=== PATIENT | male | born 1930 | race Caucasian/White ===

== ENCOUNTER 2019-11-25 19:18 | Inpatient (IN) | payer MEDICARE ==
[~2019-11-25] VITALS: Ht 182.9 cm; Wt 81.6 kg
[2019-11-25 20:39] VITALS: BP 148/73
[2019-11-25] MEDS ORDERED: AMIO200T4 PO (22:19)
[2019-11-25] MEDS ORDERED: BENZ200C53 PO (22:20)
[2019-11-25] MEDS ORDERED: CARV12.52 PO (22:21)
[2019-11-25] MEDS ORDERED: FURO40TA5 PO (22:22)
[2019-11-25] MEDS ORDERED: MAGN400T8 PO (22:26)
[2019-11-25] MEDS ORDERED: POTA-10 PO (22:27)
[2019-11-25] MEDS ORDERED: RIVA10TA PO (22:28)
[2019-11-25] MEDS ORDERED: TAMS-12 PO (22:29)
[2019-11-25] MEDS ORDERED: CEFD300C3 PO (22:30)
[2019-11-25] MEDS ORDERED: DOCU100C36 PO (22:31)
[2019-11-25] MEDS ORDERED: DIPH-530 PO (22:36)
[2019-11-25] MEDS ORDERED: HYDR-4384 PO (22:37)
[2019-11-25] MEDS ORDERED: METO-295 PO (22:39)
[2019-11-25] MEDS ORDERED: BLOOD SUGAR DIAGNOSTIC 1 EACH STRIP IN ONE (23:00)
[2019-11-25] MEDS ORDERED: MAG HYDROX/AL HYDROX/SIMETH 30 ML UDC PO PRN (23:00)
[2019-11-25] MEDS ORDERED: ACETAMINOPHEN 325 MG TABLET PO PRN (23:00)
[2019-11-25] MEDS ORDERED: LORAZEPAM 0.5 MG TABLET PO PRN (23:00)
[2019-11-25] MEDS ORDERED: MAGNESIUM HYDROXIDE 30 ML UDC PO PRN (23:00)
[2019-11-25] MEDS ORDERED: TEMAZEPAM 7.5 MG CAPSULE PO PRN (23:00)
[2019-11-26] MEDS ORDERED: METOCLOPRAMIDE HCL 10 MG TABLET PO PRN
[2019-11-26] MEDS ORDERED: HYDROCODONE/APAP 5/325MG 1 EACH TABLET PO PRN
[2019-11-26 01:52] VITALS: BP 148/73
--- NOTE | 2019-11-26 02:05 | NUR ---
GPS INSTALLERS MECHANICAL NOTES: RECEIVED PT FROM [facility]. PT IS ON HOLD 5150 FOR DTS PLACED ON 11/25/2019 @ 1442. PER HOLD, PT WAS ADMITTED TO [facility] FOR INTENTIONAL OVERDOSE. PT STATED TO [facility] STYLIST ASSISTANT THAT "I'M SICK OF EVERYTHING" HE FURTHER EXPLAINED THAT HE FEELS HIS LIFE WAS "BASICALLY OVER" BECAUSE HE IS 89 Y/O AND FELT HIS FAMILY WAS IGNORING HIM. HE THEN STATED HE HAD OVERDOSED ON A BETA [place] AT 2:00 AM WITH THE INTENTION TO . UPON FACE TO FACE ASSESSMENT PATIENT IS ALERT AND ORIENTED 2-3X, CALM AND COOPERATIVE, APPEARS DEPRESSED, CLEAR SPEECH, HARD OF HEARING, HAS PACE MAKER ON LEFT UPPER CHEST. DISHEVELED, AND STATED HE WANTS TO GO HOME TO HIS . PT MALCOLM [phone] WAS CONTACTED AND INFORMED OF PT ADMISSION, AND SHE SPOKE WITH PT. NO SIGNS OF ACUTE DISTRESS, BREATHING UNLABORED WITH EQUAL RISE AND FALL OF THE CHEST, ON ROOM AIR WITH SPO2 OF 97%. PT DENIES SI AND HI AT THIS TIME. REFUSED TO SIGN ADMISSION PAPERWORK. MRSA BOTH NARES DONE, BLOOD SUGAR 93%. PT ADVISED OF HOLD. PT IS UNDER THE PSYCHIATRIC CARE OF DR. [facility] PT BELONGINGS WERE INVENTORIED AND CHECKED FOR CONTRABAND, AND CONTRABAND TAKEN AND PLACED IN LOCKED LOCKER. PT CHARTING AND SKIN ASSESSMENT COMPLETED, PICTURES TAKEN AND PLACED IN CHART. PT HAS A LACERATION ON HIS LEFT ELBOW, AND SCABS AND BRUISES ON BILATERAL UPPER AND LOWER EXTREMITIES. WOUND CONSULT ORDERED. PT ORIENTED TO ROOM, FLOOR AND STAFF. PT EDUCATED ON THE USE OF CALL LIGHT. BED SIDE RAILS UP X2 FOR SAFETY, BED IN LOW LOCKED POSITION. PT ASSISTED WITH TURNING AND REPOSITIONING Q 2 HR AND PRN FOR CIRCULATION AND COMFORT. OFFERED SNACK AND FLUID TOLERATED. PT CURRENTLY SLEEPING IN BED. WILL CONTINUE TO MONITOR FOR SAFETY, MOOD AND BEHAVIOR AND ENDORSE TO AM NURSE.
[2019-11-26] MEDS: DOCUSATE SODIUM 100 MG CAPSULE PO SCH ×2 (06:00→16:54)
[2019-11-26] MEDS: CARVEDILOL 12.5 MG TABLET PO SCH ×2 (06:00→16:55)
[2019-11-26] MEDS: RIVAROXABAN 10 MG TABLET PO SCH (06:00)
[2019-11-26] MEDS: AMIODARONE HCL 200 MG TABLET PO SCH (06:00)
[2019-11-26] MEDS: MAGNESIUM OXIDE 400 MG TABLET PO SCH (06:00)
--- NOTE | 2019-11-26 06:47 | NUR ---
GPS RN NOTES: PT WOKE UP AT ABOUT 0605 CONFUSED, AND DISORGANIZED, GOT OUT OF BED STATING "I WANT TO , I WANT TO PEE". PT ASSISTED TO THE BATHROOM TO VOID AND REDIRECTED TO PRESENT SITUATION. REFUSED ALL 0600 AM MEDICATIONS AND WENT BACK TO SLEEP. V/S TAKEN BP156/76, P71, O2 SAT 97%. WILL CONTINUE TO MONITOR AND ENDORSE TO AM NURSE. Addendum: 11/26/19 at 0658 by MEENU DAVENPORT RN PT HAS AN ORDER FOR BLOOD THINNER XARELTO 10MG 1 TAB PO
[2019-11-26] MEDS ORDERED: DIPHENHYDRAMINE HCL 12.5 MG/5 ML UDC PO PRN (07:00)
[2019-11-26] MEDS ORDERED: BENZONATATE 100 MG CAPSULE PO PRN (07:00)
[2019-11-26] MEDS ORDERED: CEFDINIR PO SCH (09:00)
--- NOTE | 2019-11-26 11:24 | NUR ---
WOUND CARE CONSULT: PT VERY AGITATED AND REFUSED SKIN ASSESSMENT. REVIEWED PHOTOS WHICH SHOW SCARRING WITH HEALING SKIN TEAR/ABRASION TO LEFT ELBOW/ARM AREA, PRESENT ON ADMISSION. RECOMMENDATIONS MADE FOR WOUND CARE AND SKIN PROTECTION. DISCUSSED WITH NURSING STAFF. CURRENT EDIN SCORE IS 13. WILL SEE PRN. BANDA IN AGREEMENT WITH PLAN OF CARE.
[2019-11-26] MEDS ORDERED: Z GUARD REMEDY 2 OZ OINT TP PRN (11:30)
--- NOTE | 2019-11-26 14:32 | NUR ---
Family Contact: SHAWANDA called the pts , Le ([phone]), and discussed the pts discharge and treatment plan. 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 She stated that once he is discharged she will take him home.
--- NOTE | 2019-11-26 14:34 | NUR ---
Substance Abuse Intervention: SW attempted to conduct a substance abuse intervention with the pt but the pt refused and stated, "I do not have a substance abuse problem."
--- NOTE | 2019-11-26 14:52 | NUR ---
Individual Counseling: This SW met with the pt. at beside to facilitate 1on1 counseling. Patient presented hard of hearing, irritable and guarded. Patient discussed he would like to speak to his psychiatrist and is confused about his stay here. SW used empathetic listening, validation and addressed the patient's questions and concerns. SW inquired about the patient's mood. Patient stated he felt irritated and thinks he will feel better once he can speak to the doctor. Pt. will be invited to attend future therapeutic milieu.
[2019-11-26 15:48] VITALS: BP 131/73
--- NOTE | 2019-11-26 16:15 | NUR ---
Initial Discharge Plan: Pt currently resides at his home located at [address] [place] [address]; ([phone]). Per pt, he would like to return to his home. SHAWANDA will work with the pt and the MD regarding appropriate discharge planning. SW will form a safe and proper discharge plan.
[2019-11-26] MEDS: TAMSULOSIN 0.4 MG CAP.SR.24H PO SCH (17:17)
--- NOTE | 2019-11-26 17:58 | NUR ---
Patient refused take medications at 1700 and 1800, pt stated he don't trust staff and who put poisons in medicine, so he doesn't want to take. Also patient refused wound treatment on left upper arm skin tear. Will continue to monitor for safety and behavior.
--- NOTE | 2019-11-26 19:16 | NUR ---
GPS/RN OPENING NOTES RECEIVED PATIENT IN BED, ABLE TO VERBALIZE NEEDS, RESPIRATIONS EVEN AND UNLABORED, BELONGINGS WITHIN REACH, REQUIRE ASSISTANCE FOR SAFETY, INSTRUCT TO CALL AND USES URINAL, BED SIDE COMMODE STAND BY, ISO COORDINATOR TO ASSIST AND BEING MONITORED FOR ANY CHANGES. RECEIVED ENDORSEMENT FROM AM RN FOR CHRISTIANO.
[2019-11-26 20:00] VITALS: BP 145/69
[2019-11-26 20:10] VITALS: BP 145/69
--- NOTE | 2019-11-26 21:15 | NUR ---
GPS RN NOTE, PATIENT REFUSED TO TAKE COREG 12.5 MG PO AT 1700 TODAY, BUT IS REQUESTING COREG AT THIS TIME. PAGED [facility] AND INFORMED JAIDEN GARIBAY DNP OF MY FINDINGS. JAIDEN GARIBAY DNP ORDERED TO GIVE COREG 12.5 MG PO ONE TIME. ALL ORDERS NOTED AND CARRIED OUT. WILL CONTINUE TO MONITOR THIS PATIENT WITH THE HELP OF STAFF.
[2019-11-26] MEDS ORDERED: CARVEDILOL 6.25 MG TABLET PO ONE (21:30)
--- NOTE | 2019-11-26 21:30 | NUR ---
GPS/RN NOTES PATIENT REQUESTED PRN BENADRYL
--- NOTE | 2019-11-26 21:50 | NUR ---
GPS/RN NOTES ONE TIME ORDER FOR BP MEDICATION COREG 12.5 ORDER RECEIVED TO GIVE FOR PATIENT REQUEST AND WITH BP PARAMETER.
[2019-11-26] MEDS ORDERED: diphenhydrAMINE HCL ELIX 25 MG/10 ML UDC ONE (23:34)
[2019-11-27] MEDS: diphenhydrAMINE HCL ELIX 25 MG/10 ML UDC PO PRN ×2 (00:12→21:35)
[2019-11-27 05:06] LABS: APPEARANCE,URINE CLEAR (CLEAR); BILIRUBIN,URINE NEGATIVE (NEGATIVE); BLOOD, URINE NEGATIVE Ery/uL (NEGATIVE); COLOR,URINE YELLOW (YELLOW); KETONES,URINE NEGATIVE (NEGATIVE); LEUKOCYTE ESTERASE ,URINE NEGATIVE (NEGATIVE); NITRITE, URINE NEGATIVE (NEGATIVE); PH,URINE 7.5 (5.0-8.0); PROTEIN,URINE NEGATIVE (NEGATIVE); UGLUCOSE NEGATIVE (NEGATIVE); UROBILINOGEN,URINE 0.2 EU/dL (0.2)
--- NOTE | 2019-11-27 05:49 | NUR ---
GPS/RN NOTES PATIENT RESTING IN BED, PREFERS TO TAKE 0600 AM MEDS A LITTLE LATER HE WANTS TO GET SOME MORE SLEEP. TO ENDORSE TO AM RN FOR CHRISTIANO.
[2019-11-27] MEDS: DOCUSATE SODIUM 100 MG CAPSULE PO SCH ×3 (06:00→17:17)
[2019-11-27] MEDS: AMIODARONE HCL 200 MG TABLET PO SCH (06:40)
[2019-11-27] MEDS: RIVAROXABAN 10 MG TABLET PO SCH (06:40)
[2019-11-27] MEDS: MAGNESIUM OXIDE 400 MG TABLET PO SCH (06:41)
[2019-11-27] MEDS: CARVEDILOL 12.5 MG TABLET PO SCH ×2 (06:41→17:18)
[2019-11-27 07:14] LABS: BASOPHILS # (AUTO) 0.1 /CMM (0.0-0.2); BASOPHILS % (AUTO) 0.5 % (0.0-2.0); EOSINOPHILS % (AUTO) 1.3 % (0.0-6.0); HEMATOCRIT 31 % (39-51); HEMOGLOBIN 10.4 g/dL (13.5-17.5); LYMPHOCYTES # (AUTO) 0.9 /CMM (0.8-4.8); LYMPHOCYTES % (AUTO) 7.7 % (20.0-44.0); MEAN CORPUSCULAR HGB CONC 34 g/dl (31.0-36.0); MEAN CORPUSCULAR VOLUME 87 fL (80-96); MONOCYTES # (AUTO) 1.2 /CMM (0.1-1.30); NEUTROPHILS # (AUTO) 9.3 /CMM (1.8-8.9); NEUTROPHILS % (AUTO) 80.5 % (43.0-81.0); PLATELET COUNT (AUTO) 460 /CMM (150-450); RED BLOOD CELL COUNT(AUTO) 3.52 MIL/uL (4.5-6.0); WHITE BLOOD COUNT (AUTO) 11.6 K/uL (4.3-11.0)
[2019-11-27 07:20] LABS: CALCIUM, SERUM 8.2 mg/dL (8.5-10.1); POTASSIUM 3.8 mmol/L (3.5-5.1)
[2019-11-27 07:34] LABS: THYROID STIMULATING HORMONE 5.555 uIU/mL (0.358-3.74)
--- NOTE | 2019-11-27 12:00 | NUR ---
RN NOTE: CALL TO REQUESTING SHE BRING IN PATIENT'S OWN SUPPLY OF ANTIBIOTIC FOR COMPLETION OF PNEUMONIA TREATMENT. TO BRING IN CEFDINIR FROM HOME.
--- NOTE | 2019-11-27 12:41 | NUR ---
RN NOTE: URINE SODIUM AND OSMOLALITY SENT TO LAB
[2019-11-27 14:13] LABS: URINE SODIUM, RANDOM 33 mmol/l (40-220)
[2019-11-27 14:18] LABS: OSMOLALITY,URINE 236 mOS/kg (340-1090)
--- NOTE | 2019-11-27 15:34 | NUR ---
CRISTAL NOTE: STEFANIA SESSIONS CLERK TO CLARIFY WITH INFECTIOUS DISEASE REGARDING ANTIBIOTIC TREATMENT.
[2019-11-27 16:00] VITALS: BP 122/67
[2019-11-27] MEDS ORDERED: CEFEPIME 1 GM in IV D5W 50 ML IV SCH (17:00)
[2019-11-27] MEDS: TAMSULOSIN 0.4 MG CAP.SR.24H PO SCH (17:17)
[2019-11-27 20:00] VITALS: BP 104/62
--- NOTE | 2019-11-28 03:53 | NUR ---
GPS RN NOTE: PT IS A/O 2X, FLAT AFFECT, APPEARS DEPRESSED, NEEDY, REDIRECTABLE, COOPERATIVE, NO S/S OF DISTRESS. AWAITING PT MALCOLM TO BRING IN PATIENT HOME SUPPLY OF ANTIBIOTIC CEFDINIR FOR THE COMPLETION OF PNEUMONIA TREATMENT. PT PROMISED TO BRING THE MEDICATION FROM HOME TODAY 11/28/2019 FOR PT TO CONTINUE TREATMENT. WILL CONTINUE TO MONITOR FOR ANY CHANGES IN PT CONDITION.
[2019-11-28] MEDS: DOCUSATE SODIUM 100 MG CAPSULE PO SCH ×2 (06:00→16:53)
[2019-11-28] MEDS: MAGNESIUM OXIDE 400 MG TABLET PO SCH (06:39)
[2019-11-28] MEDS: RIVAROXABAN 10 MG TABLET PO SCH (06:40)
[2019-11-28] MEDS: AMIODARONE HCL 200 MG TABLET PO SCH (06:47)
[2019-11-28] MEDS: CARVEDILOL 12.5 MG TABLET PO SCH ×2 (06:48→16:51)
[2019-11-28 08:00] VITALS: BP 129/61
--- NOTE | 2019-11-28 09:00 | NUR ---
RN NOTE- PT ALERT ORIENTED TO PERSON PLACE TIME PURPOSE. INTERACTIVE CALM DIRECTABLE STATES "I FEEL MUCH BETTER'. NEEDS ATTENDED. RN HEDIS TO ASSIST PT TO AMBULATE W [facility] IN HALLS. TO BRING RX TO HOSPITAL . DENIES SI HI AH VH.
[2019-11-28] MEDS: LOSARTAN POTASSIUM 50 MG TABLET PO SCH ×2 (09:30→20:23)
[2019-11-28 09:44] LABS: CALCIUM, SERUM 8.1 mg/dL (8.5-10.1); CREATININE 1.1 mg/dL (0.6-1.3); MAGNESIUM 1.9 mg/dL (1.8-2.4); PHOSPHORUS 3.1 mg/dL (2.5-4.9); POTASSIUM 3.9 mmol/L (3.5-5.1)
[2019-11-28 09:52] LABS: THYROID STIMULATING HORMONE 5.515 uIU/mL (0.358-3.74); URIC ACID 4.1 mg/dL (2.6-7.2)
--- NOTE | 2019-11-28 11:50 | NUR ---
RN NOTE- PT FOUND ON FLOOR IN BR. PT AWAKE RESPONSIVE. STATED 'I FELL' ASSISTED TO BED, EXAM DONE NO INJURIES PRESENT . VS - B/P- 121/71, HR- 81, RR- 18, T- 97.9 SATURATION 97% BLOCK SEALER HOLT ORDERED CT HEAD WITHOUT CONTRAST. PLACED IN MARK CHAIR FOR OBSERVATION. Addendum: 11/28/19 at 1339 by MICHELLE MINA RN ABOVE POSTED TO WRONG PATIENT
[2019-11-28 16:00] VITALS: BP 112/71
[2019-11-28] MEDS: CEFDINIR 300 MG PO SCH (16:54)
[2019-11-28] MEDS: TAMSULOSIN 0.4 MG CAP.SR.24H PO SCH (17:31)
[2019-11-28 19:40] VITALS: BP 100/57
--- NOTE | 2019-11-29 06:15 | NUR ---
dehairing machine tender notes pt refused to take his medication at this time and he stated he has right to refused even i told him the importance and benefit of his medication to his body. He allowed us to took photo of his left elbow and left arm only. refused to take photo of his back and right arm other parts of his body. No signs of any distress noted. will endorse to am nurse , charge nurse is aware.
[2019-11-29 08:00] VITALS: BP 129/70
[2019-11-29] MEDS: LOSARTAN POTASSIUM 50 MG TABLET PO SCH (08:31)
[2019-11-29 08:36] VITALS: BP 129/70
[2019-11-29] MEDS: CEFDINIR 300 MG PO SCH (08:36)
[2019-11-29] MEDS ORDERED: AMIODARONE HCL 200 MG TABLET PO SCH (09:00)
[2019-11-29] MEDS ORDERED: MAGNESIUM OXIDE 400 MG TABLET PO SCH (09:00)
[2019-11-29] MEDS ORDERED: CARVEDILOL 12.5 MG TABLET PO SCH (09:00)
[2019-11-29] MEDS ORDERED: DOCUSATE SODIUM 100 MG CAPSULE PO SCH (09:00)
--- NOTE | 2019-11-29 09:00 | NUR ---
RN NOTE- PT ALERT ORIENTED CALM DIRECTABLE. DENIES ALL. MED COMPLIANT. DC THIS MORNING
--- NOTE | 2019-11-29 09:51 | NUR ---
Family Contact: SHAWANDA called the pts , Le ([phone]), and informed her that the pt is being discharged back to his home today. SHAWANDA asked her to hot die picker the pt at 12:30pm and she stated that she would.
[2019-11-29] MEDS ORDERED: CLOTRIMAZOLE 1% 15 GM TUBE TP SCH (09:58)
[2019-11-29 10:41] LABS: BASOPHILS # (AUTO) 0.1 /CMM (0.0-0.2); BASOPHILS % (AUTO) 0.7 % (0.0-2.0); EOSINOPHILS % (AUTO) 1.4 % (0.0-6.0); HEMATOCRIT 30 % (39-51); LYMPHOCYTES # (AUTO) 0.7 /CMM (0.8-4.8); LYMPHOCYTES % (AUTO) 7.1 % (20.0-44.0); MEAN CORPUSCULAR HGB CONC 33 g/dl (31.0-36.0); MEAN CORPUSCULAR VOLUME 88 fL (80-96); MONOCYTES # (AUTO) 1.1 /CMM (0.1-1.30); MONOCYTES % (AUTO) 11.8 % (2.0-12.0); NEUTROPHILS # (AUTO) 7.6 /CMM (1.8-8.9); PLATELET COUNT (AUTO) 425 /CMM (150-450); WHITE BLOOD COUNT (AUTO) 9.6 K/uL (4.3-11.0)
[2019-11-29 10:51] LABS: CALCIUM, SERUM 8.1 mg/dL (8.5-10.1); CREATININE 1.1 mg/dL (0.6-1.3); POTASSIUM 3.9 mmol/L (3.5-5.1)
--- NOTE | 2019-11-29 10:58 | NUR ---
RN NOTE- CLOTRIMAZOLE CREAM APPLIED TO BILATERAL GROIN AREA FOR TINEA CRURIS.
--- NOTE | 2019-11-29 12:45 | NUR ---
COAT OPERATOR NOTE- PT DC AT THIS TIME VIA WCR TO SPOUSE AND FAMILY. DC INSTRUCTIONS AND AFTERCARE DISCUSSED W SPOUSE AND FAMILY AND VERBALIZED UNDERSTANDING EXPRESSED. VS STABLE. PT DENIES SI HI AH VH. ALERT ORIENTED TO PERSON PLACE TIME AND PURPOSE. VALUABLES RETURNED AND SIGNED FOR. SKIN CONDITION DOCUMENTED IN CHART W PHOTOGRAPHS AND ID WRISTBAND REMOVED. PT ESCORTED OFF UNIT BY THIS RN AND GIVEN OVER TO CARE OF SPOUSE.
--- NOTE | 2019-11-29 13:42 | NUR ---
Discharge Note: Pt was discharged to his home located at [address], [address] [address]; ([phone]). Pts , Le ([phone]), was made aware of the discharge and she picked up the pt at 12:30pm. Upon discharge, the pt appeared to be in a euthymic mood and presented with a calm affect. Pt appeared to be alert and oriented x4 (time, place, self and situation). Pt denied both suicidal and homicidal ideation as well as auditory and visual hallucinations. Pt appears to be ambulatory with a steady gait. Pt appears to be groomed and appropriately dressed. provided the pt with three substance abuse referrals that are presented below. Pt was referred to be under the care of psychiatrist, Dr. [place], [place] [address] [facility] [address] [address]; . Pt will continue to be under the care of defence intelligence analyst, Dr. Tigre Hua, located at [address] [place] [address]; . Pts stated that she will make an appointment with the defence intelligence analyst. Treatment Referrals [facility] [address] [place] [address] Tel. [facility] [address] [place] Provider Mental Health Treatment Tele-dermatology HIV Services Telemedicine Services [place] [facility] [address] [place] [address] [facility] [address] [place] [address]
[2019-11-29] MEDS ORDERED: RIVAROXABAN 10 MG TABLET PO SCH (17:00)
== END 2019-11-29 12:45 | disposition home or self-care (01) | DRG 885 ==
LOC: GPS 19:48
PROVIDERS: ADMIT Psychiatry & Neurology Psychiatry; ATTEND Registered Nurse
DX: F32.2 Major depressive disorder, single episode, severe without psychotic features (principal); N18.9 Chronic kidney disease, unspecified; G92 Toxic encephalopathy; I48.20 Chronic atrial fibrillation, unspecified; I50.42 Chronic combined systolic (congestive) and diastolic (congestive) heart failure; I13.0 Hypertensive heart and chronic kidney disease with heart failure and stage 1 through stage 4 chronic kidney disease, or unspecified chronic kidney disease; R45.851 Suicidal ideations; E87.1 Hypo-osmolality and hyponatremia; F29 Unspecified psychosis not due to a substance or known physiological condition; F41.9 Anxiety disorder, unspecified; T44.7X2D Poisoning by beta-adrenoreceptor antagonists, intentional self-harm, subsequent encounter; I25.5 Ischemic cardiomyopathy; K21.9 Gastro-esophageal reflux disease without esophagitis; N40.0 Benign prostatic hyperplasia without lower urinary tract symptoms; D63.1 Anemia in chronic kidney disease; E11.22 Type 2 diabetes mellitus with diabetic chronic kidney disease; K22.8 Other specified diseases of esophagus; K59.00 Constipation, unspecified; Z79.01 Long term (current) use of anticoagulants; Z95.810 Presence of automatic (implantable) cardiac defibrillator; I45.81 Long QT syndrome; R91.1 Solitary pulmonary nodule; I25.10 Atherosclerotic heart disease of native coronary artery without angina pectoris; H91.90 Unspecified hearing loss, unspecified ear; Z88.0 Allergy status to penicillin
CPT/HCPCS: 36415; 71045-TC; 80048-TC; 80061-TC; 81000-TC; 82533; 82728-TC; 82962-TC; 83540-TC; 83735-TC; 83935-TC; 84100-TC; 84300-TC; 84439-TC; 84443-TC; 84550-TC; 85025-TC; 87081-TC; 93307-TC; 97116-TC; 97530-TC; J0692; J7060; Q0163